=== PATIENT | female | born 1950 ===

== ENCOUNTER → 2021-06-23 | Outpatient (CLI) | payer SELFPAY | LOC: LAB SHORT 13:43 | DX: D48.5 Neoplasm of uncertain behavior of skin (principal) | CPT/HCPCS: 88312 ==

== ENCOUNTER → 2021-08-27 | Outpatient (CLI) | payer SELFPAY ==
[2021-09-01 10:07] LABS: HSV-1 DNA Negative (Negative); HSV-2 DNA Positive (Negative)
== END | disposition home or self-care (01) ==
LOC: LAB SHORT 15:30
PROVIDERS: Physician Assistant
DX: R21 Rash and other nonspecific skin eruption (principal)
CPT/HCPCS: 87529; 87798